=== PATIENT | female | born 1980 | race American Indian/Alaskan Native ===

== ENCOUNTER 2020-07-26 09:36 | Outpatient (CLI) | payer OTHER ==
--- NOTE | 2020-07-26 11:37 | XRay Report ---
CERVICAL SPINE 3 VIEWS INDICATION: Cervical neck pain. COMPARISON: No relevant prior imaging study available. FINDINGS: No acute fracture or subluxation is seen. There is mild discogenic degenerative change at C3-C4. No p revertebral soft tissue swelling. IMPRESSION: 1. No acute findings. LEFT KNEE 4 VIEWS INDICATION: Left knee pain. COMPARISON: No relevant prior imaging study available. FINDINGS: No acute skeletal abnormality. No joint effusion. No degenerative changes. IMPRESSION: 1. No acute findings. HIPS AND PELVIS 3 VIEWS INDICATION: HIP PAIN. COMPARISON: No relevant prior imaging study available. FINDINGS: There is no acute skeletal abnormality. Joint space narrowing and mild subchondral sclerosis at the p ubic symphysis. SI joints are within normal limits. IMPRESSION: 1. Mild degenerative change at the pubic symphysis. No acute findings. Signer Name: Son Acevedo MD Signed: 07/26/2020 11:32 AM Workstation Name: [id number]
== END 2020-07-26 09:37 | disposition home or self-care (01) ==
LOC: XRAY 09:36
PROVIDERS: ATTEND Internal Medicine
DX: M50.31 Other cervical disc degeneration, high cervical region (principal); M16.9 Osteoarthritis of hip, unspecified
CPT/HCPCS: 72040; 73521

== ENCOUNTER 2021-04-24 10:10 | Outpatient (CLI) | payer OTHER ==
--- NOTE | 2021-04-24 15:30 | Mammography Report ---
LEFT DIGITAL DIAGNOSTIC MAMMOGRAM WITH CAD , 04/24/2021 LEFT LIMITED BREAST ULTRASOUND CLINICAL INFORMATION / INDICATION: Patient presented to radiology for possible left breast biopsy bas ed on outside imaging. Patient has bloody left nipple discharge. TECHNIQUE: Digital left mammographic imaging was performed. Magnification views were obtained. Limite d ultrasound was performed. This examination was interpreted with the benefit of Computer-Aided Detec tion (CAD) analysis. COMPARISON: Prior outside left mammogram and left breast ultrasound, 03/11/2021 FINDINGS: Breast Density: The breasts are heterogeneously dense, which may obscure small masses. MAMMOGRAPHIC FINDINGS: There are vascular calcifications noted throughout the left breast. Additional ly there is a small cluster of heterogeneous calcifications in the subareolar region, adjacent to the nipple areolar complex.. ULTRASOUND FINDINGS: Targeted ultrasound evaluation was performed of the area of interest. Sonograp hic evaluation of the left breast demonstrate several small simple cysts scattered throughout the lat eral and subareolar region. The largest cyst measures 10 mm in diameter. Most of the cysts are 5 mm i n diameter. Additionally, there is a small solid appearing nodule abutting the nipple measuring 7 x 4 mm, which appears contain a few calcifications. This most likely correlates with cluster of calcific ations seen mammographically. This may represent an intraductal mass. This would be very difficult to biopsy as it is abutting the nipple and skin of the areolar complex. This is most likely be best rem isabella with surgical biopsy. IMPRESSION: 1. Small mass, possibly intraductal, containing calcifications in the immediate subareolar region abu tting the nipple. This would be difficult to biopsy percutaneously due to intimate association with t he nipple and surgical excision is suggested. This lesion may account for the patient's complaint of bloody nipple discharge. 2. Diffuse fibrocystic change. 3. 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 Follow up recommendation: Biopsy BI-RADS Category 4: Suspicious for Malignancy. A "normal" or negative report should not discourage follow up or biopsy of a clinically significant f inding. A written summary of these findings will be mailed to the patient. The patient will be entered into a mammography reporting system which will generate a reminder letter for the patient's next appointmen t at the appropriate interval. According to the [employer], yearly mammograms are recommended starting at age 40 and continuing as long as a woman is in good health. Breast MRI is recommended for women with an magy roximately 20-25% or greater lifetime risk of breast cancer, including women with a strong family his tory of breast or ovarian cancer and women who have been treated for Hodgkin's disease. Signer Name: Evelin Springer MD Signed: 04/24/2021 3:25 PM Workstation Name: [id number]
== END 2021-04-24 10:11 | disposition home or self-care (01) ==
LOC: US 10:10
PROVIDERS: ATTEND Surgery
DX: R92.1 Mammographic calcification found on diagnostic imaging of breast (principal); N60.02 Solitary cyst of left breast; N60.12 Diffuse cystic mastopathy of left breast

== ENCOUNTER 2021-05-29 08:10 | Day surgery (SDC) | payer OTHER ==
[~2021-05-29 08:10] MED LIST: ceFAZolin/STERILE WATER 2 GM/20 ML SYRINGE IV NR
[2021-05-29] MEDS ORDERED: LIDOCAINE (1%) 10 MG/1 ML VIAL 20 ML MDV ONE ×2 (08:33→12:09)
[2021-05-29] MEDS ORDERED: HYDROmorphone 1 MG/1 ML INJ IV PRN (10:58)
[2021-05-29] MEDS ORDERED: ONDANSETRON 4 MG/2 ML INJ IV PRN (10:58)
[2021-05-29] MEDS ORDERED: ACETAMINOPHEN 500 MG TAB PO ONE (10:59)
[2021-05-29] MEDS ORDERED: MAGNESIUM OXIDE 400 MG TAB PO ONE ×2 (10:59→11:20)
[2021-05-29] MEDS ORDERED: CELECOXIB 200 MG CAP PO NR (11:00)
[2021-05-29] MEDS ORDERED: MIDAZOLAM 2 MG/2 ML INJ IV NR (11:00)
[2021-05-29] MEDS ORDERED: LACTATED RINGERS 1,000 ML IV SCH (11:00)
--- NOTE | 2021-05-29 11:06 | Anesthesia Day of Surgery ---
Anesthesia Day of Surgery - Day of Surgery Patient Examined: Yes Patient H&P Reviewed: Yes Patient is NPO: Yes Beta Blockers: Yes
--- NOTE | 2021-05-29 11:08 | Anesthesia Consultation ---
Anesthesia Consult and Med Hx Date of service: 05/29/21 - Airway Anesthetic Teeth Evaluation: Good ROM Head & Neck: Adequate Mental/Hyoid Distance: Adequate Mallampati Class: Class III Intubation Access Assessment: Possibly Difficult (Small mouth opening) - Pre-Operative Health Status ASA Pre-Surgery Classification: ASA3 Proposed Anesthetic Plan: General - Pulmonary Hx Smoking: Yes (SMOKES MARIJUANA OCCASIONALLY) Hx Asthma: No Hx Respiratory Symptoms: No SOB: No COPD: No Hx Pneumonia: No (Had COVID 11/2020 and has residual dyspnea) - Cardiovascular System Hx Hypertension: Yes Hx Heart Attack/AMI: No Hx Percutaneous Transluminal Coronary Angioplasty (PTCA): No Hx Cardia Arrhythmia: No Hx Heart Murmur: Yes - Central Nervous System Hx Neuromuscular Disorder: Yes (Fibromyalgia; left-sided weakness) Hx Seizures: No CVA: No (Has had syncopal episodes and is getting worked up) Hx Back Pain: Yes (DEGENERATIVE JOINT DISEASE) Hx Psychiatric Problems: Yes (PTSD/Anxiety/Depression/Panic attacks) - Gastrointestinal Hx Gastroesophageal Reflux Disease: No - Endocrine Hx Renal Disease: No Hx End Stage Renal Disease: No Hx Liver Disease: No Hx Insulin Dependent Diabetes: No Hx Hyperthyroidism: Yes - Hematic Hx Anemia: Yes (RESOLVED) Hx Sickle Cell Disease: No - Other Systems Hx Alcohol Use: No Hx Substance Use: Yes (MARIJUANA OCCASIONALLY) Hx Cancer: No
[2021-05-29] MEDS ORDERED: CELECOXIB 200 MG CAP ONE (11:20)
[2021-05-29] MEDS ORDERED: HYDROmorphone 1 MG/1 ML INJ ONE (11:32)
[2021-05-29] MEDS ORDERED: propofoL 200 MG/20 ML VIAL IV ONE (11:32)
[2021-05-29] MEDS ORDERED: BUPIVACAINE/PF (0.25%) 2.5 MG/ML 10 ML VIAL INFILTRATI ONE (12:10)
[2021-05-29] MEDS ORDERED: LIDOCAINE MPF (2%) 20 MG/1 ML VIAL 5 ML ONE (12:19)
[2021-05-29] MEDS ORDERED: GLYCOPYRROLATE 0.4 MG/2 ML INJ ONE (12:19)
[2021-05-29] MEDS: HYDROmorphone 1 MG/1 ML INJ IV PRN ×3 (12:27→14:08)
[2021-05-29] MEDS ORDERED: BUPIVACAINE/PF (0.25%) 2.5 MG/ML 30 ML VIAL INFILTRATI ONE (13:09)
[2021-05-29] MEDS ORDERED: LIDOCAINE (1%) 10 MG/1 ML VIAL 20 ML MDV INFILTRATI ONE (13:10)
[2021-05-29] MEDS ORDERED: ONDANSETRON 4 MG/2 ML INJ ONE (13:25)
--- NOTE | 2021-05-29 13:35 | Operative Report ---
Operative Report Operative Report: Operative Report: Date of procedure: May 29, 2021 Pre-operative diagnosis: Spontaneous left clear nipple discharge and left breast retroareolar mass upper outer quadrant Post-operative diagnosis: Same Procedure name(s): Left nipple terminal duct excisional biopsy and left breast retroareolar mass excisional biopsy of upper outer quadrant Surgeon: Alissa Lyles M.D. Ratoprinter: Sapna Broussard M.D. Anesthesia: Gen. Findings: Clear nipple discharge around the 4/5 o'clock position was appropriately identified and dissected free and sent to pathology; left wire needle localization excisional biopsy Complications: None Drains: None Estimated blood loss: Minimal Disposition: PACU in good condition Indications for operative procedure: This is a 41 year old lady with left nipple spontaneous bloody nipple discharge and recent abnormal left breast ultrasound and left mammogram. Left breast nodule at area of calcifications with attempted biopsy but unable to be performed by radiologist given close proxmity to area of concern to nipple. Recommendations for surgical excision. Recommendations are to proceed with a left nipple terminal duct excisional biopsy as well given spontaneous clear nipple discharege to rule out malignancy. Patient wished to proceed with the above procedure. Procedure in detail: The patient was taken to radiology for localization via mammogram. Calcifications and nodule were not visualized under mammogram and radiologist recommendation to place wire via ultrasound guidance at location of calcifications and nodule. Radiologist noted that wire was 1 to 2 cm proximal to the area of concern was not directly at the lesion of concern. The patient was taken to the operating room. Gen. anesthesia was administered. The left breast was prepped and draped in the normal side operative fashion. Timeout was performed. The wire was identified. The clear discharging duct from the left nipple was identified around the 4/5 o'clock position. Lacrimal probe was inserted. A lateral periareolar incision was made with a 15 blade knife with dissection taken down to the subcutaneous tissues. First began raising of the lateral flap with removal of the wire from the skin with dissection take down posteriorly past the wire-past the area of concern, followed by raising of the inferior flap, medial flap and superior flap with all flaps taken down posteriorly past the wire and past the area of concern. Additional dissection past the wire was unable to be performed given close proximity of the underlying skin at nipple and concern for devascularizing the nipple. The breast area of concern was appropriately removed posteriorly with the aid of the Bovie cautery. The wire was not encountered. Specimen was marked and then sent to pathology and radiology; radiograph specimen with wire in good position, calcification and nodule not well visualized. Attention was then taken towards the terminal duct excisional biopsy. First began with dissection of the tissues posterior to the nipple taken down posteriorly to 3 cm. The duct of concern was identified with the lacrimal probe appropriately inserted within the duct and then dissected free. The terminal duct was appropriately marked using a 3-0 Vicryl stitch. The terminal duct with its surrounding tissues were removed with the aid of Bovie cautery and sent to pathology. Hemostasis was obtained with the aid of Bovie cautery. The breast cavity tissues were anesthetized with 1% lidocaine and quarter percent Marcaine. The subcutaneous tissues were approximated and closed using interrupted 3-0 Vicryl and skin brought together and closed using a running 4-0 Monocryl foll owed by skin affix. She tolerated surgery very well and was awakened from anesthesia without any complications and transported to PACU in good condition.
--- NOTE | 2021-05-29 13:40 | Short Stay Summary ---
Short Stay Documentation Date of service: 05/29/21 - History H&P: obtained from office - Allergies and Medications Current Medications: Allergies No Known Allergies Allergy (Verified 05/16/21 16:42) Home Medications Medication Instructions Recorded Confirmed Last Taken Type RX: Oxycodone HCl/Acetaminophen 1 tab PO BID 07/25/16 05/16/21 05/29/21 07:00 History [OxyCODONE-Acetaminophen 10-325] RX: ALPRAZolam [Xanax TAB] 1 mg PO BID 11/08/18 05/16/21 05/29/21 07:00 History RX: Duloxetine HCl [DULoxetine] 60 mg PO BID 11/08/18 05/16/21 05/28/21 History RX: Propranolol HCl 20 mg PO BID 11/08/18 05/16/21 05/29/21 07:00 History RX: Sulindac 200 mg PO BID 11/08/18 05/16/21 05/28/21 History RX: tiZANidine [Zanaflex 4mg TAB] 4 mg PO BID 11/08/18 05/16/21 05/28/21 History RX: traMADoL [Ultram 50 MG tab] 50 mg PO Q4H 11/08/18 05/16/21 05/28/21 History RX: traZODone [Desyrel] 50 mg PO QHS 11/08/18 05/16/21 05/28/21 History Ergocalciferol [Vitamin D2] 1 cap PO QWEEK 05/16/21 05/29/21 05/25/21 History Gabapentin [Neurontin] 600 mg PO BID 05/16/21 05/16/21 05/29/21 07:00 History Levothyroxine [Synthroid] 112 mcg PO QAM 05/16/21 05/16/21 05/29/21 07:00 History Olmesartan Medoxomil [Benicar] 40 mg PO DAILY 05/16/21 05/16/21 05/28/21 History Topiramate [Topamax] 150 mg PO BID 05/16/21 05/16/21 05/28/21 History busPIRone [Buspar] 10 mg PO PRN PRN 05/16/21 05/16/21 05/28/21 History cloNIDine [Catapres] 0.2 mg PO QHS 05/16/21 05/16/21 05/28/21 History RX: Ibuprofen [Motrin 800 MG tab] 800 mg PO Q8HR PRN #10 tablet 05/29/21 Unknown Rx Active Medications Cefazolin Sodium (Cefazolin/Sterile Water 2 Gm/20 Ml Syringe) 2 gm IV PREOP NR Stop: 05/29/21 23:59 Celecoxib (Celecoxib 200 Mg Cap) 400 mg PO PREOP NR Stop: 05/29/21 23:59 Last Admin: 05/29/21 11:25 Dose: 400 mg Documented by: Hydromorphone HCl (Hydromorphone 1 Mg/1 Ml Inj) 0.25 mg IV Q10MIN PRN PRN Reason: Pain, Moderate (4-6) Stop: 05/29/21 23:59 Hydromorphone HCl (Hydromorphone 1 Mg/1 Ml Inj) 0.5 mg IV Q10MIN PRN PRN Reason: Pain , Severe (7-10) Stop: 05/29/21 23:59 Last Admin: 05/29/21 12:27 Dose: 0.5 mg Documented by: Lactated Ringer's (Lactated Ringers) 1,000 mls @ 125 mls/hr IV DIRECT RYAN Last Admin: 05/29/21 11:30 Dose: 125 mls/hr Documented by: Midazolam HCl (Midazolam 2 Mg/2 Ml Inj) 2 mg IV PREOP NR Stop: 05/29/21 23:59 Last Admin: 05/29/21 11:30 Dose: 2 mg Documented by: Ondansetron HCl (Ondansetron 4 Mg/2 Ml Inj) 4 mg IV ONCE PRN PRN Reason: Nausea And Vomiting - Brief post op/procedure progress note Date of procedure: 05/29/21 Pre-op diagnosis: Left breast mass upper outer quadrant and nipple discharge Post-op diagnosis: same Procedure: Left breast mass needle localization excisional biopsy and left nipple terminal duct excisional biopsy Anesthesia: GETA Findings: Left wire present and left terminal duct excisional biopsy Surgeon: HUGO MENA Estimated blood loss: minimal Pathology: list Specimen disposition: to lab Condition: stable - Disposition Condition at discharge: Good Disposition: DC- TO HOME OR SELFCARE Short Stay Discharge Plan Activity: other (no heavy lifting) Diet: regular Wound: keep clean and dry (wear breast binder; may shower in 48 hours; no baths, pools or lakes) Follow up with: HUGO MENA MD [Staff Physician] - 7 Days Prescriptions: RX: Ibuprofen [Motrin 800 MG tab] 800 mg PO Q8HR PRN #10 tablet PRN Reason: Pain , Severe (7-10)
[2021-05-29] MEDS ORDERED: hydrALAZINE 20 MG/1 ML INJ IV PRN (14:30)
[2021-05-29 15:23] VITALS: BP 140/84
--- NOTE | 2021-05-29 16:06 | Ultrasound Report ---
ULTRASOUND NEEDLE LOCALIZATION BREAST LEFT MAMMOGRAM HISTORY: Left breast mass COMPARISON: 04/24/2021 FINDINGS: Informed consent was obtained. Sterile technique was utilized. Skin anesthesia was accomplished with 1% lidocaine. Using ultrasound guidance, wire localization of an approximate 6 mm retroareolar nodule /mass was performed. A 3 cm localization wire was placed along the leading edge of the nodule. Adequa te placement was also confirmed with 2 view mammogram. The patient tolerated the procedure without di fficulty. IMPRESSION: Successful ultrasound-guided needle localization of a 6 mm retroareolar left breast hilario claudette as described. Signer Name: Jeremiah Waggoner Jr, MD Signed: 05/29/2021 4:01 PM Workstation Name: [id number]
--- NOTE | 2021-05-29 16:07 | Mammography Report ---
LEFT BREAST SPECIMEN RADIOGRAPH, 05/29/2021 INDICATION: Left breast mass COMPARISON: Needle localization performed earlier today FINDINGS: The localization wire containing a small amount of tissue is submitted. There is suggestion of a nodu lar density within the specimen which correlates with the suspected lesion on ultrasound. Please sera elate with margins from pathology. IMPRESSION: 1. Radiographic evidence of satisfactory excision of the left breast retroareolar lesion. Signer Name: Jeremiah Waggoner Jr, MD Signed: 05/29/2021 4:03 PM Workstation Name: [id number]
--- NOTE | 2021-05-29 18:20 | Post Anesthesia Evaluation ---
- Post Anesthesia Evaluation Patient Participated: Yes Airway Patent: Yes Stable Respiratory Function: Yes Nausea/Vomiting: No Temp > 96.8F: Yes Pain Manageable: Yes Adequeate Hydration: Yes Anesthesia Complications: No Block Receding Appropriately: Not Applicable Patient on Ventilator: No
== END 2021-05-29 15:50 | disposition home or self-care (01) ==
LOC: OR 08:10
PROVIDERS: ATTEND Surgery
DX: N64.52 Nipple discharge (principal); N63.21 Unspecified lump in the left breast, upper outer quadrant; N60.82 Other benign mammary dysplasias of left breast; D24.2 Benign neoplasm of left breast; Z20.822 Contact with and (suspected) exposure to COVID-19; D64.9 Anemia, unspecified; G43.909 Migraine, unspecified, not intractable, without status migrainosus; I10 Essential (primary) hypertension; K21.9 Gastro-esophageal reflux disease without esophagitis; M79.7 Fibromyalgia; M19.90 Unspecified osteoarthritis, unspecified site; E05.90 Thyrotoxicosis, unspecified without thyrotoxic crisis or storm; F32.9 Major depressive disorder, single episode, unspecified; F41.9 Anxiety disorder, unspecified; Z79.899 Other long term (current) drug therapy; Z98.51 Tubal ligation status; Z80.3 Family history of malignant neoplasm of breast; Z90.710 Acquired absence of both cervix and uterus; Z98.890 Other specified postprocedural states; Z82.49 Family history of ischemic heart disease and other diseases of the circulatory system; Z86.73 Personal history of transient ischemic attack (TIA), and cerebral infarction without residual deficits
CPT/HCPCS: 19120; 19125; 19285; 76098; 77065; 88307; A4648; J0360; J0690; J1170; J2250; J2405; J2704; J7120; U0003

== ENCOUNTER 2021-10-31 08:31 | Day surgery (SDC) | payer OTHER ==
[2021-10-31] MEDS ORDERED: SODIUM CHLORIDE 0.9% 500 ML 500 ML IV SCH (10:00)
[2021-10-31] MEDS ORDERED: METOPROLOL TARTRATE 5 MG/5 ML INJ IV ONE (10:00)
[2021-10-31] MEDS ORDERED: NITROGLYCERIN 0.4 MG TAB SUBL SL ONE (10:00)
[2021-10-31] MEDS ORDERED: METOPROLOL TARTRATE 50 MG TAB PO ONE (10:30)
[2021-10-31] MEDS ORDERED: ATROPINE 0.1% (1 MG/10 ML) CARDIAC SYRINGE ONE (10:44)
[2021-10-31 11:11] VITALS: BP 138/81
--- NOTE | 2021-10-31 12:10 | Cat Scan Report ---
CTA HEART WITH AND WITHOUT CONTRAST 10/31/2021 10:25 AM TECHNIQUE: CT angiography performed on a 64-channel system. 3-D/MIP reformats were postprocessed. All CT scans at this location are performed using CT dose reduction for ALARA by means of automated expo sure control. Note that this exam targets the heart and the entire chest was not imaged. CONTRAST: 100 ml Omnipaque 350 HISTORY: Chest Pain COMPARISONS: none FINDINGS: CARDIAC/CORONARY FINDINGS: Please see cardiology report in this particular case. EXTRACARDIAC/EXTRACORONARY FINDINGS: VISUALIZED LUNGS: unremarkable VISUALIZED MEDIASTINUM: unremarkable VISUALIZED CHEST WALL: unremarkable VISUALIZED UPPER ABDOMEN: unremarkable . IMPRESSION 1. Please see cardiology dictation in this particular case for the cardiac/coronary findings. 2. Otherwise unremarkable extracardiac/extracoronary findings. DISCLAIMER: This is a combined radiology and cardiology interpretation. Cardiology is solely responsible for rep orting of cardiac and coronary findings. Radiology is solely responsible for reporting of the extrac ardiac and extracoronary findings. Signer Name: Jeremiah Waggoner Jr, MD Signed: 10/31/2021 11:48 AM Workstation Name: [id number]
--- NOTE | 2021-11-02 09:55 | CT Calcium Scoring Report ---
Coronary Calcium Score Date of service: 11/02/21 Procedure: High-resolution computed tomographic imaging of the chest was performed on10/31/21 with particular attention paid to the coronary arteries. Images from the examination were analyzed for the presence and extent of coronary artery calcification, using coronary calcium quantification software. The patient tolerated the procedure well and there were no complications. The results of the coronary calcification analysis are provided below. The patient scores are compared with published data related to scores for people of a similar age and the same gender. - Findings Total Agatson Score: 0 Findings: Cardiac CTA Indication: chest pain Informed consent obtained Procedure: The patient was brought to the cardiac ct laboratory at [facility] in stable condition after a 4 hour fast. Heart rate was regulated by beta blockade. Sublingual ntg was administered. After data acquisition and reconstruction the images were post processed and reviewed on the computer workstation. Multiple phases of the cardiac cycle were assessed for image interpretation. Volume rendered images, multiplanar reformated images, and maximum intensity projections images were generated and reviewed A coronary calcium score was performed via the Agatston method was performed. A separate radiology assessment of the non cardiac structures in the field of view will be provided. Superior vena cava in the field of view appears normal Inferior vena cava in the filed of view appears normal Ascending aorta in the field of view appears normal Descending aorta in the field of view appears normal Pulmonary artery in the filed of view appears normal Pulmonary veins enter the left atrium appropriately Left ventricle appears normal Right Ventricle appears normal Left atrium appears normal Left atrial appendage appears normal Right atrium appears normal Interventricular septum appears normal Interatrial septum appears normal Aortic valve appears normal Mitral Valve appears normal Intracardiac mass: none Pericardial effusion: none Coronary Angiography: Dominance: right Origins: normal Left main: normal Left anterior descending coronary artery and diagonal branches: normal Circumflex coronary artery and obtuse marginal branches: normal Right coronary artery: normal the preocedure was tolerate well. there were no procedural complications
== END 2021-10-31 11:45 | disposition home or self-care (01) ==
LOC: CT 08:31 → CATHLABREC 08:31 → EDSTATUS 09:45 → CATHLABREC 11:45
PROVIDERS: ATTEND Internal Medicine Cardiovascular Disease
DX: R07.89 Other chest pain (principal); Z79.899 Other long term (current) drug therapy; Z98.890 Other specified postprocedural states
CPT/HCPCS: 36415; 75574; 82565; 84520; Q9967; J9280; J0461; J7040